=== PATIENT | female | born 1985 ===

== ENCOUNTER 2024-08-06 10:43 | Inpatient (IN) | payer OTHER ==
[~2024-08-06] VITALS: Ht 27.9 cm; Wt 49.9 kg
[2024-08-06 11:31] VITALS: BP 120/81
[2024-08-06] MEDS ORDERED: PROTONIX40 M1 PO (11:31)
[2024-08-18] MEDS ORDERED: METRONIDAZOLE/SODIUM CHLORIDE 500 MG/100 ML PIGGYBACK IV ONE (17:30)
[2024-08-18] MEDS ORDERED: CEFTRIAXONE SODIUM 2,000 MG VIAL IV SCH (17:30)
[2024-08-18] MEDS ORDERED: ONDANSETRON HCL 2 MG/ML VIAL IV PRN (19:00)
[2024-08-18] MEDS ORDERED: OxyCODONE HCL 5 MG TABLET (ROXICODONE) PO PRN (19:00)
[2024-08-18] MEDS ORDERED: DEXTROSE 50 % IN WATER 0.5 G/ML DISP.SYRIN IV PRN (19:00)
[2024-08-18] MEDS ORDERED: RINGERS SOLUTION,LACTATED 1,000 ML IV SCH (19:00)
[2024-08-18] MEDS ORDERED: MEPERIDINE HCL 25 MG/ML AMPUL IV ONE (19:45)
[2024-08-18] MEDS ORDERED: DIPHENHYDRAMINE HCL 50 MG/ML VIAL 1ML IV ONE (19:45)
[2024-08-18] MEDS ORDERED: ACETAMINOPHEN 500 MG GEL..CAP PO SCH (20:00)
[2024-08-18] MEDS ORDERED: MEPERIDINE HCL/PF 50 MG/ML VIAL IV SCH (20:35)
[2024-08-18] MEDS ORDERED: MEPERIDINE HCL 50 MG/ML AMPUL IV ONE (20:45)
[2024-08-18] MEDS ORDERED: SIMETHICONE 125 MG CAPSULE PO SCH (21:00)
[2024-08-18] MEDS ORDERED: FAMOTIDINE/PF 20 MG/2 ML VIAL IV PUSH SCH (21:00)
[2024-08-18 21:29] LABS: HEMATOCRIT 35.1 % (36.0-45.00); HEMOGLOBIN 11.8 g/dL (12.0-15.00); MEAN CELL VOLUME 87.1 fL (80.00-100.00); MEAN CORPUSCULAR HEMOGLOBIN 29.3 pg (27.00-32.0); MEAN CORPUSCULAR HGB CONC 33.6 g/dl (32.0-36.0); PLATELET COUNT 298 K/uL (150-450); RED BLOOD COUNT 4.04 M/uL (4.00-6.00); RED CELL DISTRIBUTION WIDTH 12.6 % (11.5-14.5)
[2024-08-19] VITALS: BP 104/55; O2SAT 100
[2024-08-19] MEDS ORDERED: METOCLOPRAMIDE HCL 5 MG/ML VIAL IV SCH (01:00)
[2024-08-19] MEDS ORDERED: GABAPENTIN 300 MG CAPSULE PO SCH (01:00)
[2024-08-19] MEDS ORDERED: CELECOXIB 200 MG CAPSULE PO SCH (05:00)
[2024-08-19 06:56] LABS: HEMATOCRIT 34.7 % (36.0-45.00); HEMOGLOBIN 11.7 g/dL (12.0-15.00); MEAN CELL VOLUME 87.2 fL (80.00-100.00); MEAN CORPUSCULAR HEMOGLOBIN 29.4 pg (27.00-32.0); MEAN CORPUSCULAR HGB CONC 33.7 g/dl (32.0-36.0); PLATELET COUNT 290 K/uL (150-450); RED BLOOD COUNT 3.98 M/uL (4.00-6.00); RED CELL DISTRIBUTION WIDTH 12.6 % (11.5-14.5)
[2024-08-19 07:13] LABS: ALBUMIN 3.3 gm/dL (3.4-5.0); CALCIUM 8.9 mg/dL (8.5-10.1); CREATININE SERUM 0.48 mg/dL (0.55-1.02); GFR 142.52; MAGNESIUM 1.6 mg/dL (1.8-2.4); POTASSIUM 4.22 mEq/L (3.5-5.1)
[2024-08-19 08:00] VITALS: BP 108/61; O2SAT 98
[2024-08-19] MEDS ORDERED: LACTOBACILLUS ACIDOPHILUS 1 CAP CAP PO SCH (09:00)
[2024-08-19] MEDS ORDERED: LACTULOSE 20 G/30 ML BLIST.PACK PO SCH (09:00)
[2024-08-19] MEDS ORDERED: HYOSCYAMINE SULFATE 0.125 MG TAB.SUBL SL SCH (09:00)
[2024-08-19 16:00] VITALS: BP 96/67; O2SAT 97
[2024-08-19] MEDS ORDERED: MAGNESIUM SULFATE IN WATER 50 ML IV NR (16:00)
[2024-08-19] MEDS ORDERED: ENOXAPARIN SODIUM 40 MG/0.4 ML SYRINGE SUBCUTANEO SCH (17:00)
[2024-08-19] MEDS ORDERED: POLYETHYLENE GLYCOL 3350 17 GM BLIST.PACK PO SCH (17:00)
[2024-08-19] MEDS ORDERED: DIPHENHYDRAMINE HCL 50 MG/ML VIAL 1ML IV ONE (17:45)
[2024-08-19] MEDS ORDERED: KETOROLAC TROMETHAMINE 30 MG VIAL IM ONE (17:45)
[2024-08-20] VITALS: BP 92/57; O2SAT 97
[2024-08-20] MEDS ORDERED: ENOXAPARIN SODIUM 40 MG/0.4 ML SYRINGE SUBCUTANEO SCH (09:00)
[2024-08-20] MEDS ORDERED: CELECOXIB 200 MG CAPSULE PO SCH (09:00)
[2024-08-20 16:30] VITALS: BP 128/63; O2SAT 95
[2024-08-21 00:44] VITALS: BP 113/61; O2SAT 99
[2024-08-21] MEDS ORDERED: MEPERIDINE HCL/PF 50 MG/ML VIAL IV SCH (06:00)
== END 2024-08-21 13:19 | disposition home or self-care (01) | DRG 330 ==
LOC: SURH 08-18 09:45 → O/R 08-18 09:45 → SURH 08-18 10:45
PROVIDERS: ADMIT Colon & Rectal Surgery; ATTEND Colon & Rectal Surgery
PROC: 0DBP4ZZ Excision of Rectum, Percutaneous Endoscopic Approach (ICD-10-PCS; 2024-08-18)
PROC: 0DJD8ZZ Inspection of Lower Intestinal Tract, Via Natural or Artificial Opening Endoscopic (ICD-10-PCS; 2024-08-18)
PROC: 0DTN4ZZ Resection of Sigmoid Colon, Percutaneous Endoscopic Approach (ICD-10-PCS; principal; 2024-08-18 16:30)
DX: K57.20 Diverticulitis of large intestine with perforation and abscess without bleeding (principal); K92.1 Melena